=== PATIENT | female | born 1955 | race Caucasian/White ===

== ENCOUNTER → 2018-08-18 | Outpatient (CLI) | payer BC | END | disposition home or self-care (01) | LOC: RAH 09:55 | PROVIDERS: ATTEND Internal Medicine Medical Oncology | DX: R92.8 Other abnormal and inconclusive findings on diagnostic imaging of breast (principal); Z85.3 Personal history of malignant neoplasm of breast | CPT/HCPCS: 77066 ==

== ENCOUNTER → 2020-09-27 | Outpatient (CLI) | payer BC | END | disposition home or self-care (01) | LOC: RAH 12:59 | PROVIDERS: ATTEND Family Medicine | DX: I70.208 Unspecified atherosclerosis of native arteries of extremities, other extremity (principal) | CPT/HCPCS: 93925 ==

== ENCOUNTER → 2020-10-23 | Outpatient (CLI) | payer OTHER | END | disposition home or self-care (01) | LOC: RAH 11:17 | PROVIDERS: ATTEND Internal Medicine Cardiovascular Disease | DX: Z13.6 Encounter for screening for cardiovascular disorders (principal); I51.5 Myocardial degeneration | CPT/HCPCS: 75571 ==

== ENCOUNTER → 2020-11-05 | Outpatient (CLI) | payer BC | END | disposition home or self-care (01) | LOC: RAH 10-30 10:59 | PROVIDERS: ATTEND Family Medicine | DX: C50.911 Malignant neoplasm of unspecified site of right female breast (principal); R92.2 Inconclusive mammogram; Z85.3 Personal history of malignant neoplasm of breast; Z90.10 Acquired absence of unspecified breast and nipple | CPT/HCPCS: 76604; 77066 ==

== ENCOUNTER → 2022-05-29 | Outpatient (CLI) | payer MEDICARE | END | disposition home or self-care (01) | LOC: RAH 12:42 | PROVIDERS: ATTEND Internal Medicine Medical Oncology | DX: C50.411 Malignant neoplasm of upper-outer quadrant of right female breast (principal); R92.8 Other abnormal and inconclusive findings on diagnostic imaging of breast | CPT/HCPCS: 77065 ==

== ENCOUNTER → 2023-03-23 | Outpatient (CLI) | payer MEDICARE | END | disposition home or self-care (01) | LOC: RAH 13:53 | PROVIDERS: ATTEND Internal Medicine Medical Oncology | DX: N60.01 Solitary cyst of right breast (principal); C50.411 Malignant neoplasm of upper-outer quadrant of right female breast; N63.11 Unspecified lump in the right breast, upper outer quadrant; Q83.1 Accessory breast; R92.1 Mammographic calcification found on diagnostic imaging of breast; Z85.3 Personal history of malignant neoplasm of breast | CPT/HCPCS: 77066 ==

== ENCOUNTER → 2024-03-24 | Outpatient (CLI) | payer MEDICARE | END | disposition home or self-care (01) | LOC: RAH 12:42 | PROVIDERS: ATTEND Internal Medicine Medical Oncology | DX: N60.01 Solitary cyst of right breast (principal); R92.333 Mammographic heterogeneous density, bilateral breasts; R92.1 Mammographic calcification found on diagnostic imaging of breast; Z85.3 Personal history of malignant neoplasm of breast | CPT/HCPCS: 77066 ==

== ENCOUNTER → 2025-03-27 | Outpatient (CLI) | payer MEDICARE ==
--- NOTE | 2025-03-28 08:45 | HMCIMG ---
BILATERAL BREAST ULTRASOUND: CLINICAL HISTORY: History of right breast cancer with prior lumpectomy Finding: Real-time examination of the both breasts demonstrates homogeneous echotexture throughout both the breasts. The right breast upper outer quadrant there is scarring which is appears to be hypoechoic measuring 1.2 x 1.7 x 1.6 cm. The right breast has multiple cysts seen at 12:00 there is a cyst measuring 0.3 x 0.3 cm. The right breast at 10:00 there is a cyst measuring 0.4 x 0.3 cm the right breast has of the small cyst measuring 0.2 x 0.2 cm. The left breast has no solid or cystic lesion seen. There is a benign-appearing axillary lymph nodes seen bilaterally on the right it measures 1.4 x 0.6 x 1.4 cm. On the left and measures 0.9 x 0.1 cm other lesion measuring 0.7 x 0.7 cm the third lymph node measuring 0.9 x 0.7 cm.. IMPRESSION: Fibrocystic changes Fibrosis seen in the right breast upper outer quadrant near the axillary tail No solid mass seen. I would recommend annual mammography with tomography with bilateral breast sonogram. FINAL ASSESSMENT: ACR: BI-RAD- 2. Benign: Also a negative assessment; finding(s) benign abnormalities. Management: Routine mammography screening. Likelihood of Cancer: Essentially 0% likelihood of malignancy.
--- NOTE | 2025-03-28 08:49 | HMCIMG ---
DIGITAL both breasts DIAGNOSTIC MAMMOGRAM Technique: The digital mammographic examination of lateral breasts in craniocaudal, mediolateral oblique views along with CAD was obtained. Ultrasound of both breasts were also obtained. History: This is a 69 years year-old female 2, para2 Ab0 . Patient has no family history of breast cancer. Patient has history of right breast biopsy in October 2016 which was malignant. Patient underwent lumpectomy on 12/24/2016 patient is on radiation therapy from January 2017. Patient has no complaint Reference:Prior mammogram from 03/24/2024, 03/23/2023, 05/29/2022, 11/10/2021, 11/05/2020 are available for comparison.. Breast composition: Breast composition C: The breasts are heterogeneously dense, which may obscure small masses. Finding: The digital mammographic examination of both breasts in craniocaudal and mediolateral oblique view along with CAD demonstrates to be mild to moderately heterogeneously dense due to fibroglandular stromal elements. There are surgical changes with the right breast being smaller than the left breast. There are surgical clips seen in the right axillary region with fibrosis. There are multiple large macrocalcification lucent center more pronounced on the right as compared to the left. This is unchanged from prior study. There is benign vascular calcification testing of atherosclerotic changes.. There is no evidence of any dendritic mass, cluster microcalcification or architectural distortion. The retromammary fat appears to be normal. IMPRESSION: Unchanged from prior mammography. NO RADIOGRAPHIC EVIDENCE OF MALIGNANT CHANGES. WE WOULD RECOMMEND ANNUAL FOLLOW UP WITH TOMOSYNTHESIS UNLESS OTHERWISE CLINICALLY INDICATED. I would also recommend annual bilateral breast sonogram. FINAL ASSESSMENT: ACR: BI-RAD- 2. Benign: Also a negative assessment; finding(s) benign abnormalities. Management: Routine mammography screening. Likelihood of Cancer: Essentially 0% likelihood of malignancy. NOTE: IF A WORK-UP OF THIS PATIENT LEADS TO A BIOPSY, PLEASE FORWARD A COPY OF THE PATHOLOGY REPORT TO OUR OFFICE REQUIRED BY [employer] APRIL 25, 1994. A NEGATIVE MAMMOGRAM SHOULD NOT PRECLUDE BIOPSY OF A CLINICALLY PALPABLE SUSPICIOUS MASS, 10% OF BREAST CANCERS ARE MAMMOGRAPHICALLY OCCULT. THIS MAMMOGRAPHY FACILITY IS FULLY ACCREDITED BY THE FOOD AND DRUG [employer]MINISTRATION (FDA). THANK YOU FOR THIS REFERRAL.
== END | disposition home or self-care (01) ==
LOC: RAH 12:37
PROVIDERS: ATTEND Internal Medicine Medical Oncology
DX: C50.411 Malignant neoplasm of upper-outer quadrant of right female breast (principal); N60.31 Fibrosclerosis of right breast; R92.333 Mammographic heterogeneous density, bilateral breasts; N60.01 Solitary cyst of right breast; R59.0 Localized enlarged lymph nodes; Z85.3 Personal history of malignant neoplasm of breast
CPT/HCPCS: 77066